=== PATIENT | female | born 1960 | race Caucasian/White ===

== ENCOUNTER → 2016-12-18 | Outpatient (CLI) | payer BC, MEDICARE ==
[~2016-12-18] MED LIST: AMOX500C5 PO; HYDR-3702 PO; VYBRID
--- NOTE | 2016-12-18 13:13 | Diagnostic Imaging Report ---
PROCEDURE: MRI right joint upper extremity without contrast. TECHNIQUE: Multiplanar, multisequence non contrast-enhanced MRI of the right upper extremity was accomplished. INDICATION: Shoulder pain with decreased range of motion. FINDINGS: There is full-thickness tear involving the supraspinatus tendon with approximately 2 cm of retraction. The infraspinatus and subscapularis appear intact. There is cephalad migration of the humeral head which is abutting the acromion process. AC joint is in good alignment. Moderate hypertrophic changes of AC joint present. Subcortical cystic changes are noted along the humeral tuberosity. Long head of the biceps is in the bicipital groove. The tendon does extend to the labral attachment. No full-thickness tear of the labrum is noted. There is irregularity along the anterior superior labrum consistent with chronic fraying. There is a small ginna-labral cyst noted along the anterior superior labrum consistent with probable labral tear. There is normal bulk to the surrounding muscles. The deltoid appears normal. IMPRESSION: 1. Full-thickness tear of the supraspinatus tendon with approximately 2 cm retraction. There is associated cephalad migration of the humeral head abutting the acromion. 2. Hypertrophic change of the AC joint. 3. Abnormal appearing labrum with small ginna-labral cyst all suggesting labral tear along the anterior superior margin. Dictated by: Dictated on workstation # [id number]
== END ==
LOC: RAD 11:52
PROVIDERS: ATTEND Family Medicine
DX: M75.81 Other shoulder lesions, right shoulder (principal); M75.121 Complete rotator cuff tear or rupture of right shoulder, not specified as traumatic
CPT/HCPCS: 73221